=== PATIENT | female | born 1955 | race Caucasian/White ===

== ENCOUNTER 2021-01-26 05:52 | Day surgery (SDC) | payer OTHER ==
[2021-01-24 17:46] VITALS: BMI 22.6
[2021-01-26] MEDS ORDERED: LIDOCAINE HCL 2% (20ML MULTI-DOSE VIAL) ONE (07:22)
[2021-01-26] MEDS ORDERED: MIDAZOLAM HCL 2 MG/2 ML SINGLE DOSE VIAL ONE (07:29)
[2021-01-26] MEDS ORDERED: LIDOCAINE HCL/PF 2% SDV 5ML VIAL ONE (07:29)
[2021-01-26] MEDS ORDERED: PROPOFOL 20 ML ONE (07:29)
[2021-01-26] MEDS ORDERED: ceFAZolin SODIUM 1 GM VIAL ONE (07:44)
[2021-01-26] MEDS ORDERED: LIDOCAINE HCL 2% (50ML VIAL) NR ONE (07:56)
[2021-01-26 08:25] VITALS: TEMP 97.6
[2021-01-26 09:17] VITALS: BP 109/65; PULSE 80
== END 2021-01-26 09:05 | disposition home or self-care (01) ==
LOC: FASU 05:52
PROVIDERS: ATTEND Orthopaedic Surgery
PROC: 0LN70ZZ Release Right Hand Tendon, Open Approach (ICD-10-PCS; principal; 2021-01-26 07:55)
DX: M65.341 Trigger finger, right ring finger (principal)
CPT/HCPCS: 82962